=== PATIENT | male | born 2000 | race Two or more races ===

== ENCOUNTER 2025-02-20 01:44 | Inpatient (IN) | payer MEDICAID, OTHER ==
[~2025-02-20] VITALS: Ht 185.4 cm; Wt 92.6 kg
[2025-02-20 02:56] LABS: PLATELET COUNT (AUTO) 235 K/uL (150-450); RED BLOOD CELL COUNT(AUTO) 4.39 MIL/uL (4.50-5.90); RED CELL DISTRIBUTION WIDTH 15.8 % (11.5-14.5); WHITE BLOOD COUNT (AUTO) 7.7 K/uL (4.5-11.0)
[2025-02-20 03:04] LABS: CALCIUM, TOTAL 8.5 mg/dL (8.8-10.5); CREATININE 0.80 mg/dL (0.60-1.30); GLOMERULAR FILTR. RATE CALC > 60 mL/min (>60); GLUCOSE,RANDOM 333 mg/dL (70-110); SODIUM SERUM 139 mmol/L (136-145); UREA NITROGEN, BLOOD 13 mg/dL (7-18)
[2025-02-20] MEDS: LORazepam 2 MG/ML VIAL IM ONE (03:12)
[2025-02-20 03:26] LABS: COVID AG,FIA SOURCE NASAL SWAB
[2025-02-20 03:41] LABS: APPEARANCE,URINE CLEAR (CLEAR); GLUCOSE, URINE (UA) >=1000 mg/dL (NEGATIVE); LEUKOCYTE ESTERASE ,URINE NEGATIVE (NEGATIVE); NITRATE,URINE NEGATIVE (NEGATIVE); OCCULT BLOOD,URINE NEGATIVE (NEGATIVE); PH,URINE DRUG SCREEN 6.0 (5.0-8.0); SPECIFIC GRAVITIY, URINE 1.010 (1.003-1.030)
[2025-02-20 03:44] LABS: SQUAMOUS EPITHELIAL CELL,UR None Seen /LPF (None Seen)
[2025-02-20 03:46] LABS: ALCOHOL, URINE DRUG SCREEN NEGATIVE (NEGATIVE); AMPHET/METH SCREEN,URINE NEGATIVE (NEGATIVE); BARBITURATE SCREEN, URINE NEGATIVE (NEGATIVE); CANNABINOID SCREEN,URINE NEGATIVE (NEGATIVE); COCAINE SCREEN,URINE NEGATIVE (NEGATIVE); METHADONE SCREEN, URINE NEGATIVE (NEGATIVE)
[2025-02-20 03:57] LABS: SARS-COV2 (COVID) ANTIGEN,FIA Negative (Negative)
[2025-02-20 05:51] LABS: GLUCOMETER DEV NAME(LOC) ERT.7; GLUCOSE,POINT OF CARE 230 MG/DL (70-110)
[2025-02-20] MEDS: ACETAMINOPHEN 325 MG TABLET PO ONE (15:40)
[2025-02-20 18:46] VITALS: O2SAT 98
[2025-02-20] MEDS: ZOLPIDEM TARTRATE 10 MG TABLET PO PRN (21:46)
[2025-02-21 00:49] VITALS: BP 119/71; PULSE 85; RESP 17; TEMP 97.5; O2SAT 100
[2025-02-21] MEDS ORDERED: PNEUMOCOCCAL VACCINE POLYVALENT 0.5 ML SYRINGE [PPSV23] IM. ONE (02:15)
[2025-02-21 06:31] LABS: GLUCOMETER DEV NAME(LOC) BV3S.2; GLUCOSE,POINT OF CARE 90 MG/DL (70-110)
[2025-02-21] MEDS ORDERED: MAGNESIUM HYDROXIDE SUSPENSION 30 ML UDCUP PO PRN (08:00)
[2025-02-21] MEDS ORDERED: LOPERAMIDE HCL 2 MG CAPSULE PO PRN (08:00)
[2025-02-21] MEDS ORDERED: DOCUSATE SODIUM 100 MG CAPSULE PO PRN (08:00)
[2025-02-21] MEDS ORDERED: OMEPRAZOLE 20 MG CAPSULE PO PRN (08:00)
[2025-02-21] MEDS ORDERED: BACITRACIN 28 GM OINTMENT TP PRN (08:00)
[2025-02-21] MEDS ORDERED: PETROLATUM,WHITE 28 GM JELLY TP PRN (08:00)
[2025-02-21] MEDS ORDERED: ALBUTEROL SULFATE HFA 90 MCG/PUFF 8 GM INHALER IH PRN (08:00)
[2025-02-21] MEDS ORDERED: GLUCAGON,HUMAN RECOMBINANT 1 MG VIAL IM PRN (08:00)
[2025-02-21 08:37] VITALS: BP 138/88; RESP 18; TEMP 97.8; O2SAT 98
[2025-02-21 09:37] LABS: PLATELET COUNT (AUTO) 260 K/uL (150-450); RED BLOOD CELL COUNT(AUTO) 4.93 MIL/uL (4.50-5.90); RED CELL DISTRIBUTION WIDTH 16.1 % (11.5-14.5); WHITE BLOOD COUNT (AUTO) 9.0 K/uL (4.5-11.0)
[2025-02-21] MEDS ORDERED: LITH600C PO (09:55)
[2025-02-21] MEDS ORDERED: DIVA-153 PO (09:55)
[2025-02-21] MEDS ORDERED: QUET400T13 PO (09:55)
[2025-02-21] MEDS ORDERED: RISP4TAB94 PO (09:55)
[2025-02-21 10:15] LABS: ASPARTATE AMINOTRANSFERASE 43 U/L (15-37); CALCIUM, TOTAL 8.7 mg/dL (8.8-10.5); CHOL/HDL RATIO 4.2 (4.2-7.3); CREATININE 0.71 mg/dL (0.60-1.30); GLOMERULAR FILTR. RATE CALC > 60 mL/min (>60); GLUCOSE,RANDOM 157 mg/dL (70-110); LDL CHOL (CALC.) 72 mg/dL (0-130); SODIUM SERUM 141 mmol/L (136-145); TOTAL PROTEIN, SERUM 7.1 g/dL (6.4-8.2); UREA NITROGEN, BLOOD 11 mg/dL (7-18)
[2025-02-21 11:46] LABS: GLUCOMETER DEV NAME(LOC) BV3S.2; GLUCOSE,POINT OF CARE 133 MG/DL (70-110)
[2025-02-21] MEDS: DIVALPROEX SODIUM 500 MG ER TABLET PO SCH (12:08)
[2025-02-21 14:06] VITALS: BP 130/93; PULSE 110; RESP 16; TEMP 97.3; O2SAT 99
[2025-02-21] MEDS: ACETAMINOPHEN 325 MG TABLET PO PRN (14:06)
[2025-02-21 15:06] VITALS: BP 133/90; PULSE 92; RESP 16; TEMP 97.1; O2SAT 99
[2025-02-21 16:26] LABS: GLUCOMETER DEV NAME(LOC) BV3S.2; GLUCOSE,POINT OF CARE 115 MG/DL (70-110)
[2025-02-21 20:11] LABS: GLUCOMETER DEV NAME(LOC) BV3S.2; GLUCOSE,POINT OF CARE 100 MG/DL (70-110)
[2025-02-21 20:38] VITALS: BP 124/92; PULSE 100; RESP 18; TEMP 97.7; O2SAT 99
[2025-02-21] MEDS: LITHIUM CARBONATE 600 MG CAPSULE PO SCH (20:50)
[2025-02-21] MEDS: LORazepam 2 MG/ML VIAL IM ONE (21:26)
[2025-02-22 06:26] LABS: GLUCOMETER DEV NAME(LOC) BV3S.2; GLUCOSE,POINT OF CARE 79 MG/DL (70-110)
[2025-02-22] MEDS: INSULIN LISPRO 100 UNITS/ML SQ PRN (06:26)
[2025-02-22 08:12] VITALS: BP 122/74; RESP 17; TEMP 97.5; O2SAT 98
[2025-02-22 09:20] LABS: VALPROIC ACID 35.0 mcg/mL (50-100)
[2025-02-22 11:00] VITALS: BP 124/90; PULSE 118; RESP 18; TEMP 97.5; O2SAT 100
[2025-02-22 12:13] VITALS: BP 113/68; PULSE 102; RESP 18; TEMP 97.6; O2SAT 99
[2025-02-22 13:30] LABS: GLUCOMETER DEV NAME(LOC) BV3S.2; GLUCOSE,POINT OF CARE 103 MG/DL (70-110)
[2025-02-22 17:10] LABS: GLUCOMETER DEV NAME(LOC) BV3S.2; GLUCOSE,POINT OF CARE 100 MG/DL (70-110)
[2025-02-22 19:51] LABS: GLUCOMETER DEV NAME(LOC) BV3S.2; GLUCOSE,POINT OF CARE 141 MG/DL (70-110)
[2025-02-22 20:14] VITALS: BP 120/64; PULSE 110; RESP 18; TEMP 97.9; O2SAT 99
[2025-02-23 06:35] LABS: GLUCOMETER DEV NAME(LOC) BV3S.2; GLUCOSE,POINT OF CARE 90 MG/DL (70-110)
[2025-02-23 09:01] VITALS: BP 114/67; PULSE 100; RESP 17; TEMP 97.7; O2SAT 99
[2025-02-23 11:46] LABS: GLUCOMETER DEV NAME(LOC) BV3S.2; GLUCOSE,POINT OF CARE 114 MG/DL (70-110)
[2025-02-23 16:50] LABS: GLUCOMETER DEV NAME(LOC) BV3S.2; GLUCOSE,POINT OF CARE 105 MG/DL (70-110)
[2025-02-23 18:25] VITALS: BP 116/74; PULSE 96; RESP 18; TEMP 97.6; O2SAT 98
[2025-02-23 19:17] VITALS: RESP 18
[2025-02-23 20:28] VITALS: BP 122/92; PULSE 91; RESP 18; TEMP 97.7; O2SAT 100
[2025-02-24 06:40] LABS: GLUCOMETER DEV NAME(LOC) BV3S.2; GLUCOSE,POINT OF CARE 92 MG/DL (70-110)
[2025-02-24 08:25] VITALS: RESP 18
[2025-02-24 09:39] VITALS: BP 112/63; PULSE 97; RESP 18; TEMP 97.4; O2SAT 98
[2025-02-24 12:20] LABS: GLUCOMETER DEV NAME(LOC) BV3S.2; GLUCOSE,POINT OF CARE 108 MG/DL (70-110)
[2025-02-24 20:00] VITALS: BP 114/66; PULSE 80; RESP 17; TEMP 97.6; O2SAT 96
[2025-02-24 20:21] LABS: GLUCOMETER DEV NAME(LOC) BV3S.2; GLUCOSE,POINT OF CARE 150 MG/DL (70-110)
[2025-02-24 20:21] LABS: GLUCOMETER DEV NAME(LOC) BV3S.2; GLUCOSE,POINT OF CARE 122 MG/DL (70-110)
[2025-02-25 06:40] LABS: GLUCOMETER DEV NAME(LOC) BV3S.2; GLUCOSE,POINT OF CARE 95 MG/DL (70-110)
[2025-02-25 09:06] VITALS: BP 104/65; PULSE 63; RESP 17; TEMP 97.8; O2SAT 99
[2025-02-25 11:34] VITALS: BP 104/65; PULSE 63; RESP 18; TEMP 97.8; O2SAT 99
[2025-02-25 11:36] LABS: GLUCOMETER DEV NAME(LOC) BV3S.2; GLUCOSE,POINT OF CARE 92 MG/DL (70-110)
[2025-02-25 17:40] LABS: GLUCOMETER DEV NAME(LOC) BV3S.2; GLUCOSE,POINT OF CARE 91 MG/DL (70-110)
[2025-02-25 20:17] VITALS: BP 114/60; PULSE 85; RESP 18; TEMP 98.1; O2SAT 97
[2025-02-25 20:20] LABS: GLUCOMETER DEV NAME(LOC) BV3S.2; GLUCOSE,POINT OF CARE 108 MG/DL (70-110)
[2025-02-26 06:20] LABS: GLUCOMETER DEV NAME(LOC) BV3S.2; GLUCOSE,POINT OF CARE 85 MG/DL (70-110)
[2025-02-26 08:16] VITALS: BP 118/73; PULSE 97; RESP 18; TEMP 98.2; O2SAT 95
[2025-02-26 11:45] LABS: GLUCOMETER DEV NAME(LOC) BV3S.2; GLUCOSE,POINT OF CARE 85 MG/DL (70-110)
[2025-02-26 16:30] LABS: GLUCOMETER DEV NAME(LOC) BV3S.2; GLUCOSE,POINT OF CARE 92 MG/DL (70-110)
[2025-02-26 20:26] LABS: GLUCOMETER DEV NAME(LOC) BV3S.2; GLUCOSE,POINT OF CARE 96 MG/DL (70-110)
[2025-02-26 22:16] VITALS: BP 113/63; PULSE 82; RESP 16; TEMP 97.4; O2SAT 97
[2025-02-27 06:46] LABS: GLUCOMETER DEV NAME(LOC) BV3S.2; GLUCOSE,POINT OF CARE 99 MG/DL (70-110)
[2025-02-27 08:21] VITALS: BP 120/78; PULSE 96; RESP 18; TEMP 98; O2SAT 95
[2025-02-27] MEDS: LITHIUM CARBONATE 300 MG CAPSULE PO SCH (10:16)
[2025-02-27] MEDS: SERTRALINE HCL 50 MG TABLET PO SCH (10:16)
[2025-02-27 11:45] LABS: GLUCOMETER DEV NAME(LOC) BV3S.2; GLUCOSE,POINT OF CARE 81 MG/DL (70-110)
[2025-02-27 16:16] LABS: GLUCOMETER DEV NAME(LOC) BV3S.2; GLUCOSE,POINT OF CARE 91 MG/DL (70-110)
[2025-02-27 20:11] VITALS: BP 112/67; PULSE 78; RESP 18; TEMP 98.6; O2SAT 96
[2025-02-27 20:35] LABS: GLUCOMETER DEV NAME(LOC) BV3S.2; GLUCOSE,POINT OF CARE 91 MG/DL (70-110)
[2025-02-28 06:36] LABS: GLUCOMETER DEV NAME(LOC) BV3S.2; GLUCOSE,POINT OF CARE 82 MG/DL (70-110)
[2025-02-28 08:26] VITALS: BP 107/74; PULSE 91; RESP 17; TEMP 97.6; O2SAT 98
[2025-02-28 11:45] LABS: GLUCOMETER DEV NAME(LOC) BV3S.2; GLUCOSE,POINT OF CARE 94 MG/DL (70-110)
[2025-02-28 16:46] LABS: GLUCOMETER DEV NAME(LOC) BV3S.2; GLUCOSE,POINT OF CARE 97 MG/DL (70-110)
[2025-02-28 20:35] VITALS: RESP 17
[2025-02-28 22:21] LABS: GLUCOMETER DEV NAME(LOC) BV3S.2; GLUCOSE,POINT OF CARE 95 MG/DL (70-110)
[2025-03-01 08:18] VITALS: BP 114/63; PULSE 86; RESP 17; TEMP 97.5; O2SAT 97
[2025-03-01 11:25] LABS: GLUCOMETER DEV NAME(LOC) BV3S.2; GLUCOSE,POINT OF CARE 78 MG/DL (70-110)
[2025-03-01 11:25] LABS: GLUCOMETER DEV NAME(LOC) BV3S.2; GLUCOSE,POINT OF CARE 127 MG/DL (70-110)
[2025-03-01 17:05] LABS: GLUCOMETER DEV NAME(LOC) BV3S.2; GLUCOSE,POINT OF CARE 107 MG/DL (70-110)
[2025-03-01 21:23] VITALS: BP 110/69; PULSE 73; RESP 18; TEMP 97; O2SAT 96
[2025-03-01 22:06] LABS: GLUCOMETER DEV NAME(LOC) BV3S.2; GLUCOSE,POINT OF CARE 103 MG/DL (70-110)
[2025-03-02 06:30] LABS: GLUCOMETER DEV NAME(LOC) BV3S.2; GLUCOSE,POINT OF CARE 90 MG/DL (70-110)
[2025-03-02 08:42] VITALS: BP 111/68; PULSE 84; RESP 17; TEMP 98.1; O2SAT 97
[2025-03-02 11:06] LABS: GLUCOMETER DEV NAME(LOC) BV3S.2; GLUCOSE,POINT OF CARE 104 MG/DL (70-110)
[2025-03-02 16:50] LABS: GLUCOMETER DEV NAME(LOC) BV3S.2; GLUCOSE,POINT OF CARE 97 MG/DL (70-110)
[2025-03-02 20:21] VITALS: BP 108/62; PULSE 64; RESP 16; TEMP 98; O2SAT 97
[2025-03-02 20:25] LABS: GLUCOMETER DEV NAME(LOC) BV3S.2; GLUCOSE,POINT OF CARE 92 MG/DL (70-110)
[2025-03-03 06:41] LABS: GLUCOMETER DEV NAME(LOC) BV3S.2; GLUCOSE,POINT OF CARE 86 MG/DL (70-110)
[2025-03-03 08:10] VITALS: BP 109/68; PULSE 90; RESP 18; TEMP 97.8; O2SAT 95
[2025-03-03 09:48] LABS: VALPROIC ACID 71.0 mcg/mL (50-100)
[2025-03-03 10:51] LABS: GLUCOMETER DEV NAME(LOC) BV3S.2; GLUCOSE,POINT OF CARE 74 MG/DL (70-110)
[2025-03-03 16:21] LABS: GLUCOMETER DEV NAME(LOC) BV3S.2; GLUCOSE,POINT OF CARE 136 MG/DL (70-110)
[2025-03-03 20:36] LABS: GLUCOMETER DEV NAME(LOC) BV3S.2; GLUCOSE,POINT OF CARE 100 MG/DL (70-110)
[2025-03-03 21:03] VITALS: BP 114/81; PULSE 72; RESP 18; TEMP 97.5; O2SAT 98
[2025-03-04 06:11] LABS: GLUCOMETER DEV NAME(LOC) BV3S.2; GLUCOSE,POINT OF CARE 84 MG/DL (70-110)
[2025-03-04 08:09] VITALS: BP 102/65; PULSE 89; RESP 16; TEMP 97.9; O2SAT 98
[2025-03-04 11:19] VITALS: BP 117/78; PULSE 70; RESP 16; TEMP 98.1; O2SAT 98
[2025-03-04 12:19] VITALS: BP 105/70; PULSE 66; RESP 16; TEMP 98.1; O2SAT 99
[2025-03-04 12:21] LABS: GLUCOMETER DEV NAME(LOC) BV3S.2; GLUCOSE,POINT OF CARE 105 MG/DL (70-110)
[2025-03-04 16:20] LABS: GLUCOMETER DEV NAME(LOC) BV3S.2; GLUCOSE,POINT OF CARE 167 MG/DL (70-110)
[2025-03-04 20:10] VITALS: BP 123/83; PULSE 70; RESP 18; TEMP 97.5; O2SAT 100
[2025-03-04 21:07] LABS: GLUCOMETER DEV NAME(LOC) BV3S.2; GLUCOSE,POINT OF CARE 95 MG/DL (70-110)
[2025-03-05 06:11] LABS: GLUCOMETER DEV NAME(LOC) BV3S.2; GLUCOSE,POINT OF CARE 85 MG/DL (70-110)
[2025-03-05 08:05] VITALS: BP 117/60; PULSE 79; RESP 15; TEMP 97.4; O2SAT 99
[2025-03-05 11:46] LABS: GLUCOMETER DEV NAME(LOC) BV3S.2; GLUCOSE,POINT OF CARE 95 MG/DL (70-110)
[2025-03-05 16:41] LABS: GLUCOMETER DEV NAME(LOC) BV3S.2; GLUCOSE,POINT OF CARE 101 MG/DL (70-110)
[2025-03-05 20:16] LABS: GLUCOMETER DEV NAME(LOC) BV3S.2; GLUCOSE,POINT OF CARE 84 MG/DL (70-110)
[2025-03-05 20:22] VITALS: BP 95/60; PULSE 80; RESP 16; TEMP 98.2; O2SAT 99
[2025-03-06 06:35] LABS: GLUCOMETER DEV NAME(LOC) BV3S.2; GLUCOSE,POINT OF CARE 81 MG/DL (70-110)
[2025-03-06 08:17] VITALS: BP 100/60; PULSE 76; RESP 17; TEMP 97.4; O2SAT 99
[2025-03-06 14:46] LABS: GLUCOMETER DEV NAME(LOC) BV3S.2; GLUCOSE,POINT OF CARE 111 MG/DL (70-110)
[2025-03-06 17:10] LABS: GLUCOMETER DEV NAME(LOC) BV3S.2; GLUCOSE,POINT OF CARE 105 MG/DL (70-110)
[2025-03-06 20:12] VITALS: BP 116/65; PULSE 70; RESP 18; TEMP 97.3; O2SAT 98
[2025-03-07 08:50] VITALS: BP 107/59; PULSE 81; RESP 16; TEMP 98.2; O2SAT 97
[2025-03-07 20:22] VITALS: BP 104/64; PULSE 75; RESP 16; TEMP 97.7; O2SAT 98
[2025-03-08 08:20] VITALS: BP 103/64; PULSE 80; RESP 16; TEMP 97.7; O2SAT 98
[2025-03-08 20:18] VITALS: BP 102/56; PULSE 72; RESP 18; TEMP 98.8; O2SAT 97
[2025-03-09 09:13] VITALS: BP 114/80; PULSE 87; RESP 18; TEMP 97.8; O2SAT 96
[2025-03-09 20:01] VITALS: BP 122/56; PULSE 73; RESP 18; TEMP 97.1; O2SAT 97
[2025-03-10 08:23] VITALS: BP 106/60; PULSE 76; RESP 17; TEMP 97.7; O2SAT 97
[2025-03-10 20:17] VITALS: BP 126/63; PULSE 109; RESP 17; TEMP 97.2; O2SAT 96
[2025-03-10] MEDS: ZOLPIDEM TARTRATE 10 MG TABLET PO PRN (20:31)
[2025-03-11 08:11] VITALS: RESP 19
[2025-03-11 10:35] VITALS: RESP 19
[2025-03-11 20:15] VITALS: BP 114/67; PULSE 63; RESP 17; TEMP 97.8; O2SAT 98
[2025-03-12 08:08] VITALS: BP 110/66; PULSE 90; RESP 19; TEMP 98.2; O2SAT 99
[2025-03-12 20:15] VITALS: BP 117/92; PULSE 69; RESP 18; TEMP 98.2; O2SAT 99
[2025-03-13 08:54] VITALS: BP 105/60; PULSE 83; RESP 17; TEMP 97.8; O2SAT 98
[2025-03-13 20:15] VITALS: BP 118/61; PULSE 65; RESP 16; TEMP 98.4; O2SAT 96
[2025-03-14 08:23] VITALS: BP 90/65; PULSE 77; RESP 18; TEMP 97.8; O2SAT 98
[2025-03-14 18:01] VITALS: RESP 18; O2SAT 98
[2025-03-14 19:01] VITALS: RESP 17; O2SAT 98
[2025-03-14 20:27] VITALS: BP 128/90; PULSE 93; RESP 18; TEMP 97.8; O2SAT 99
[2025-03-15 08:13] VITALS: BP 119/59; PULSE 87; RESP 18; TEMP 96.8; O2SAT 97
[2025-03-15 20:43] VITALS: BP 121/68; PULSE 69; RESP 17; TEMP 97.9; O2SAT 100
[2025-03-16 09:11] VITALS: BP 127/62; PULSE 90; RESP 17; TEMP 97.7; O2SAT 98
[2025-03-16 19:02] VITALS: BP 135/85; PULSE 90; RESP 16; O2SAT 99
[2025-03-16 20:26] VITALS: BP 132/81; PULSE 98; RESP 18; TEMP 97.5; O2SAT 98
[2025-03-17] MEDS: IBUPROFEN 600 MG TABLET PO PRN (05:39)
[2025-03-17 08:17] LABS: PLATELET COUNT (AUTO) 255 K/uL (150-450); RED BLOOD CELL COUNT(AUTO) 5.09 MIL/uL (4.50-5.90); RED CELL DISTRIBUTION WIDTH 15.1 % (11.5-14.5); WHITE BLOOD COUNT (AUTO) 9.8 K/uL (4.5-11.0)
[2025-03-17 08:30] LABS: ASPARTATE AMINOTRANSFERASE 22 U/L (15-37); CALCIUM, TOTAL 9.3 mg/dL (8.8-10.5); CREATININE 0.68 mg/dL (0.60-1.30); GLOMERULAR FILTR. RATE CALC > 60 mL/min (>60); GLUCOSE,RANDOM 89 mg/dL (70-110); PHOSPHORUS 4.6 mg/dL (2.5-4.9); SODIUM SERUM 142 mmol/L (136-145); TOTAL PROTEIN, SERUM 7.9 g/dL (6.4-8.2); UREA NITROGEN, BLOOD 11 mg/dL (7-18)
[2025-03-17 09:27] VITALS: BP 132/94; PULSE 84; RESP 17; TEMP 98.3; O2SAT 100
[2025-03-17 22:12] VITALS: BP 142/90; PULSE 100; RESP 17; TEMP 97.8; O2SAT 97
[2025-03-18 08:24] VITALS: BP 136/77; PULSE 104; RESP 18; TEMP 97.5; O2SAT 99
[2025-03-18 12:27] VITALS: RESP 18
[2025-03-18 13:27] VITALS: RESP 17
[2025-03-18 16:13] VITALS: RESP 17
[2025-03-18 17:13] VITALS: RESP 16
[2025-03-18 20:34] VITALS: BP 134/94; PULSE 99; RESP 17; TEMP 97.8; O2SAT 100
[2025-03-19] MEDS: ONDANSETRON 4 MG TABLET PO PRN (06:53)
[2025-03-19 08:42] VITALS: BP 134/84; PULSE 102; RESP 18; TEMP 98.6; O2SAT 95
[2025-03-20 08:22] VITALS: BP 134/88; PULSE 100; RESP 18; TEMP 97.9; O2SAT 99
[2025-03-20 23:55] VITALS: RESP 17
[2025-03-21 08:24] VITALS: BP 116/59; PULSE 100; RESP 18; TEMP 98.2; O2SAT 97
[2025-03-21] MEDS: TUBERCULIN, PURIFIED PROTEIN DERIVATIVE 5 TU/0.1 ML SYRINGE ID ONE (18:35)
[2025-03-21 22:47] VITALS: BP 137/88; PULSE 101; RESP 18; TEMP 97.5; O2SAT 100
[2025-03-22 08:10] VITALS: BP 132/70; PULSE 100; RESP 19; TEMP 98.1; O2SAT 100
[2025-03-22] MEDS ORDERED: LORazepam 2 MG/ML VIAL ONE (11:25)
[2025-03-22] MEDS: LORazepam 2 MG/ML VIAL IM ONE (11:43)
[2025-03-22 20:06] VITALS: BP 117/76; PULSE 88; RESP 18; TEMP 97.4; O2SAT 100
[2025-03-23 08:47] VITALS: BP 105/65; PULSE 84; RESP 17; TEMP 98.2; O2SAT 99
[2025-03-23 20:11] VITALS: BP 111/75; PULSE 99; RESP 17; TEMP 97.5; O2SAT 100
[2025-03-24 08:15] VITALS: BP 129/72; PULSE 104; RESP 18; TEMP 97.2; O2SAT 99
[2025-03-24 20:08] VITALS: BP 122/84; PULSE 94; RESP 18; TEMP 97.4; O2SAT 100
[2025-03-25 04:36] VITALS: BP 123/100; PULSE 100; RESP 18; O2SAT 100
[2025-03-25 08:15] VITALS: BP 116/69; PULSE 88; RESP 18; TEMP 97.5; O2SAT 100
[2025-03-25] MEDS ORDERED: NICOTINE POLACRILEX 2 MG LOZENGE PO PRN (08:30)
[2025-03-25 20:20] VITALS: RESP 17
[2025-03-26 08:12] VITALS: BP 129/99; PULSE 100; RESP 18; TEMP 97.6; O2SAT 99
[2025-03-26 10:09] LABS: PLATELET COUNT (AUTO) 229 K/uL (150-450); RED BLOOD CELL COUNT(AUTO) 4.75 MIL/uL (4.50-5.90); RED CELL DISTRIBUTION WIDTH 14.8 % (11.5-14.5); WHITE BLOOD COUNT (AUTO) 8.3 K/uL (4.5-11.0)
[2025-03-26 20:11] VITALS: BP 112/75; PULSE 86; RESP 18; TEMP 97.4; O2SAT 99
[2025-03-26 21:11] VITALS: RESP 18
[2025-03-27 08:27] VITALS: BP 148/98; PULSE 100; RESP 18; TEMP 97.6; O2SAT 100
[2025-03-27 20:07] VITALS: BP 130/77; PULSE 94; RESP 20; TEMP 97.7; O2SAT 99
[2025-03-28] MEDS: MAG HYDROX/ALUMINUM HYD/SIMETH ES 30 ML SUSPENSION UDCUP PO PRN (01:51)
[2025-03-28 08:22] VITALS: BP 136/94; PULSE 110; RESP 17; TEMP 98; O2SAT 100
[2025-03-28 17:58] VITALS: RESP 17
[2025-03-28 20:42] VITALS: BP 122/74; PULSE 102; RESP 17; TEMP 96.8; O2SAT 99
[2025-03-29 06:01] LABS: GLUCOMETER DEV NAME(LOC) BV3S.2; GLUCOSE,POINT OF CARE 79 MG/DL (70-110)
[2025-03-29 08:40] VITALS: BP 128/70; PULSE 88; RESP 18; TEMP 97.7; O2SAT 100
[2025-03-29 21:04] VITALS: RESP 18
[2025-03-30 06:30] LABS: GLUCOMETER DEV NAME(LOC) BV3S.2; GLUCOSE,POINT OF CARE 94 MG/DL (70-110)
[2025-03-30 08:35] VITALS: BP 105/60; PULSE 84; RESP 17; TEMP 97.2; O2SAT 98
[2025-03-30 20:35] VITALS: BP 121/77; PULSE 108; RESP 18; TEMP 97.5; O2SAT 97
[2025-03-31 05:57] VITALS: BP 134/90; PULSE 98; RESP 18; TEMP 97.2; O2SAT 99
[2025-03-31 06:57] VITALS: RESP 17
[2025-03-31 08:04] VITALS: BP 127/95; PULSE 100; RESP 18; TEMP 97.6; O2SAT 99
[2025-03-31 20:01] VITALS: BP 136/92; PULSE 97; RESP 17; TEMP 97.6; O2SAT 97
[2025-04-01 08:17] VITALS: BP 127/77; PULSE 102; RESP 18; TEMP 97.3; O2SAT 97
[2025-04-01 20:10] VITALS: BP 105/78; PULSE 85; RESP 18; TEMP 97.4; O2SAT 98
[2025-04-02 09:02] LABS: PLATELET COUNT (AUTO) 238 K/uL (150-450); RED BLOOD CELL COUNT(AUTO) 5.19 MIL/uL (4.50-5.90); RED CELL DISTRIBUTION WIDTH 15.0 % (11.5-14.5); WHITE BLOOD COUNT (AUTO) 7.3 K/uL (4.5-11.0)
[2025-04-02 09:43] VITALS: BP 116/92; PULSE 105; RESP 18; TEMP 97.5; O2SAT 98
[2025-04-02 20:28] VITALS: RESP 17
[2025-04-03 09:00] VITALS: RESP 18
[2025-04-03 20:58] VITALS: RESP 17
[2025-04-04 08:13] VITALS: BP 129/84; PULSE 93; RESP 18; TEMP 97.6; O2SAT 99
[2025-04-05 02:26] VITALS: RESP 18
[2025-04-05 08:27] VITALS: BP 140/88; RESP 18; TEMP 97.5; O2SAT 100
[2025-04-05] MEDS: NICOTINE 14 MG/24 HOUR PATCH TD PRN (11:44)
[2025-04-05 20:19] VITALS: BP 131/85; PULSE 95; RESP 18; TEMP 97.2; O2SAT 98
[2025-04-06 08:42] VITALS: RESP 18
[2025-04-06 20:23] VITALS: BP 125/78; PULSE 92; RESP 18; TEMP 97.5; O2SAT 98
[2025-04-07 08:10] VITALS: BP 114/67; PULSE 97; RESP 16; TEMP 98.2; O2SAT 96
[2025-04-07 21:11] VITALS: RESP 17
[2025-04-08 08:38] VITALS: BP 124/81; PULSE 77; RESP 18; TEMP 97.6; O2SAT 97
[2025-04-08 21:37] VITALS: BP 107/67; PULSE 82; RESP 17; TEMP 96.3; O2SAT 99
[2025-04-09 08:35] VITALS: BP 117/79; RESP 17; TEMP 98; O2SAT 99
[2025-04-09 09:51] LABS: PLATELET COUNT (AUTO) 234 K/uL (150-450); RED BLOOD CELL COUNT(AUTO) 4.89 MIL/uL (4.50-5.90); RED CELL DISTRIBUTION WIDTH 14.7 % (11.5-14.5); WHITE BLOOD COUNT (AUTO) 6.4 K/uL (4.5-11.0)
[2025-04-09 20:42] VITALS: BP 138/90; PULSE 95; RESP 18; TEMP 97.4; O2SAT 100
[2025-04-10 09:20] VITALS: BP 112/63; PULSE 98; RESP 17; TEMP 98.6; O2SAT 95
[2025-04-10 20:12] VITALS: BP 119/76; PULSE 95; RESP 18; TEMP 97.3; O2SAT 97
[2025-04-11 08:16] VITALS: BP 100/64; PULSE 85; RESP 18; TEMP 97.3; O2SAT 97
[2025-04-11 20:27] VITALS: BP 110/65; PULSE 80; RESP 17; TEMP 97.7; O2SAT 98
[2025-04-12 08:17] VITALS: BP 114/81; PULSE 86; RESP 16; TEMP 97.3; O2SAT 95
[2025-04-12] MEDS: OMEGA-3/DHA/EPA/FISH OIL 1,000 MG CAPSULE PO SCH (09:28)
[2025-04-12 10:07] LABS: CLOZAPINE & NORCLOZAPINE 536 ng/mL; NORCLOZAPINE 112 ng/mL (Not Estab.)
[2025-04-12 20:46] VITALS: BP 127/79; PULSE 72; RESP 17; TEMP 97.6; O2SAT 96
[2025-04-13 08:56] VITALS: BP 112/67; PULSE 87; RESP 16; TEMP 97.3; O2SAT 96
[2025-04-13 12:08] VITALS: BP 121/76; PULSE 106; RESP 16; TEMP 97.5; O2SAT 98
[2025-04-13 20:28] VITALS: BP 113/74; PULSE 85; RESP 17; TEMP 97.5; O2SAT 97
[2025-04-14 08:09] VITALS: BP 114/69; PULSE 92; RESP 16; TEMP 97.4; O2SAT 96
[2025-04-14 20:01] VITALS: BP 112/84; PULSE 87; RESP 17; TEMP 97.4; O2SAT 100
[2025-04-15 08:24] VITALS: BP 107/67; PULSE 98; RESP 16; TEMP 98.2; O2SAT 95
[2025-04-15 20:11] VITALS: BP 103/65; PULSE 95; RESP 18; TEMP 97.4; O2SAT 97
[2025-04-16 08:16] VITALS: BP 101/63; PULSE 89; RESP 17; TEMP 97.3; O2SAT 96
[2025-04-16 16:25] VITALS: BP 114/70; PULSE 92; RESP 17; TEMP 97.4; O2SAT 96
[2025-04-16 17:25] VITALS: RESP 18
[2025-04-16 20:45] VITALS: BP 109/75; PULSE 69; RESP 15; TEMP 97.4; O2SAT 97
[2025-04-17 08:53] LABS: PLATELET COUNT (AUTO) 259 K/uL (150-450); RED BLOOD CELL COUNT(AUTO) 4.96 MIL/uL (4.50-5.90); RED CELL DISTRIBUTION WIDTH 14.9 % (11.5-14.5); WHITE BLOOD COUNT (AUTO) 9.0 K/uL (4.5-11.0)
[2025-04-17 09:06] VITALS: BP 105/60; PULSE 87; RESP 17; TEMP 98.1; O2SAT 95
[2025-04-17 20:03] VITALS: BP 114/70; PULSE 80; RESP 18; TEMP 97.7; O2SAT 97
[2025-04-18 08:06] VITALS: BP 107/61; PULSE 94; RESP 16; TEMP 97.6; O2SAT 96
[2025-04-18 20:08] VITALS: BP 102/65; PULSE 61; RESP 18; TEMP 97.6; O2SAT 98
[2025-04-18] MEDS: BENZOCAINE/MENTHOL [CEPACOL] LOZENGE PO PRN (21:58)
[2025-04-19 08:30] VITALS: BP 100/63; PULSE 89; RESP 17; TEMP 97.6; O2SAT 94
[2025-04-19 20:08] VITALS: BP 114/70; PULSE 85; RESP 17; TEMP 97.7
[2025-04-20 08:59] VITALS: BP 109/61; PULSE 89; RESP 17; TEMP 97.8; O2SAT 98
[2025-04-20 20:12] VITALS: BP 107/62; PULSE 89; RESP 18; TEMP 97.5; O2SAT 97
[2025-04-21 08:21] VITALS: BP 120/61; PULSE 92; RESP 17; TEMP 97.4; O2SAT 96
[2025-04-21 20:45] VITALS: BP 116/72; PULSE 81; RESP 17; TEMP 97.4; O2SAT 95
[2025-04-22 08:23] VITALS: BP 118/60; PULSE 86; RESP 17; TEMP 97.4; O2SAT 95
[2025-04-22 20:46] VITALS: BP 118/82; PULSE 86; RESP 18; TEMP 97.8; O2SAT 100
[2025-04-23 08:43] VITALS: BP 90/62; PULSE 88; RESP 16; TEMP 97.3; O2SAT 95
[2025-04-23 20:20] VITALS: BP 108/71; PULSE 89; RESP 18; TEMP 97.1; O2SAT 95
[2025-04-24 08:37] LABS: PLATELET COUNT (AUTO) 252 K/uL (150-450); RED BLOOD CELL COUNT(AUTO) 5.21 MIL/uL (4.50-5.90); RED CELL DISTRIBUTION WIDTH 15.5 % (11.5-14.5); WHITE BLOOD COUNT (AUTO) 10.6 K/uL (4.5-11.0)
[2025-04-24 08:49] VITALS: BP 102/62; PULSE 82; RESP 17; TEMP 97.3; O2SAT 93
[2025-04-24 20:14] VITALS: BP 112/59; PULSE 87; RESP 16; TEMP 97.3; O2SAT 98
[2025-04-25 08:34] VITALS: BP 117/87; PULSE 89; RESP 18; TEMP 96.9; O2SAT 93
[2025-04-25 18:37] VITALS: RESP 18
[2025-04-25 19:35] VITALS: RESP 18
[2025-04-25 20:39] VITALS: BP 148/99; PULSE 119; RESP 18; TEMP 97.4; O2SAT 99
[2025-04-26 08:46] VITALS: BP 123/81; PULSE 88; RESP 18; TEMP 96.8; O2SAT 88
[2025-04-26 20:23] VITALS: BP 102/61; PULSE 72; RESP 16; TEMP 98; O2SAT 99
[2025-04-27] MEDS ORDERED: CLOZ200T24 PO (08:09)
[2025-04-27] MEDS ORDERED: CLOZ100T61 PO ×2 (08:10)
[2025-04-27 08:21] VITALS: BP 100/60; PULSE 80; RESP 17; TEMP 97.3; O2SAT 96
== END 2025-04-27 14:43 | DRG 750 ==
LOC: EMS 02:02 → B3A 23:29 → B2S 03-12 21:18 → B3A 03-20 20:20
PROVIDERS: ADMIT Psychiatry & Neurology Psychiatry; ATTEND Psychiatry & Neurology Psychiatry
PROC: GZ56ZZZ Individual Psychotherapy, Supportive (ICD-10-PCS; 2025-02-21)
PROC: GZ58ZZZ Individual Psychotherapy, Cognitive-Behavioral (ICD-10-PCS; 2025-02-21)
PROC: GZHZZZZ Group Psychotherapy (ICD-10-PCS; principal; 2025-02-23)
PROC: GZ52ZZZ Individual Psychotherapy, Cognitive (ICD-10-PCS; 2025-02-24)
DX: F20.9 Schizophrenia, unspecified (principal); E03.9 Hypothyroidism, unspecified; E11.65 Type 2 diabetes mellitus with hyperglycemia; K59.00 Constipation, unspecified; G47.00 Insomnia, unspecified; F41.9 Anxiety disorder, unspecified; F43.12 Post-traumatic stress disorder, chronic; F90.0 Attention-deficit hyperactivity disorder, predominantly inattentive type; Z20.822 Contact with and (suspected) exposure to COVID-19; Z79.899 Other long term (current) drug therapy; Z72.0 Tobacco use
CPT/HCPCS: 71046; 80048; 80053; 80061; 80159; 80164; 80178; 80307; 81001; 82962; 83036; 83735; 84100; 84132; 84436; 84443; 85025; 90732; G0480; J1200; J1630; J2060; Q0162; 36415-L1; 36415-TC